=== PATIENT | male | born 1950 | race Caucasian/White ===

== ENCOUNTER 2017-01-31 23:56 | Emergency (ER) | payer MEDICARE ==
[~2017-01-31 23:56] MED LIST: ASPIRIN81 MG PO; DIABETA5 MG PO; METFORMIN HCL1000 MG PO; NEURONTIN600 MG PO; NICODERM 14MG PA1 EA TD; OMEGA 3 1,0001 EACH PO; OXYCODONE HCL30 MG PO
[2017-02-01 00:37] LABS: BASO % 0.6 % (0.2-1.2); EOS % 0.6 % (0.8-7.0); GRAN # 2.3 10_X3_uL (1.8-5.4); GRAN % 66.2 % (34.0-67.9); HEMOGLOBIN 9.1 g/dL (13.7-17.5); LYMPH # 0.7 10_X3_uL (1.3-3.6); MEAN CORPUSCULAR HEMOGLOBIN 30.1 pg (27.0-33.0); MEAN CORPUSCULAR HGB CONC 32.5 g/dL (32.0-36.0); MEAN CORPUSCULAR VOLUME 92.7 fL (79-92); MEAN PLATELET VOLUME 11.1 fl (7.5-11.5); MONO # 0.4 10_X3_uL (0.3-0.8); MONO % 11.6 % (5.3-12.2); PLATELET COUNT 54 x10_3/uL (163-337); RED BLOOD COUNT 3.02 x10_6/uL (4.6-6.1); RED CELL DISTRIBUTION WIDTH 16.5 % (11.6-14.4); WHITE BLOOD COUNT 3.5 x10_3/uL (4.2-9.1)
[2017-02-01 00:54] LABS: ALBUMIN 3.2 gm/dL (3.4-5.0); ALKALINE PHOSPHATASE 269 U/L (50-136); ALT/SGPT 29 U/L (7.53-40.17); AST/SGOT 236 U/L (6.66-35.34); BILIRUBIN,TOTAL 2.04 mg/dL (0.0-1.0); CALCIUM 9.9 mg/dL (8.7-10.7); CARBON DIOXIDE 21 mmol/L (21-32); CREATININE 1.1 mg/dL (0.6-1.3); GLUCOSE,RANDOM 113 mg/dL (70-99); POTASSIUM 4.5 mmol/L (3.5-5.1); TOTAL PROTEIN 5.7 gm/dL (6.4-8.2)
[2017-02-01 01:08] LABS: BLOOD UREA NITROGEN 21 mg/dL (7-18)
[2017-02-01 01:09] LABS: SODIUM 125 mmol/L (136-145)
== END 2017-02-01 03:54 | disposition home or self-care (01) ==
LOC: ER 23:56
PROVIDERS: General Practice
DX: K74.60 Unspecified cirrhosis of liver (principal); R18.8 Other ascites; I50.9 Heart failure, unspecified; E83.42 Hypomagnesemia; R06.02 Shortness of breath; R53.1 Weakness; J44.9 Chronic obstructive pulmonary disease, unspecified; E11.9 Type 2 diabetes mellitus without complications; Z85.9 Personal history of malignant neoplasm, unspecified; Z93.1 Gastrostomy status; F17.220 Nicotine dependence, chewing tobacco, uncomplicated; Z79.899 Other long term (current) drug therapy
CPT/HCPCS: 71020; 96372; 99284; 99285-25; J1170